=== PATIENT | male | born 1960 | race Caucasian/White ===

== ENCOUNTER 2020-02-09 13:28 | Emergency (ER) | payer MEDICARE, SELFPAY ==
--- NOTE | ~2020-02-09 | XR_ITS ---
EXAMINATION: XR foot RT min 3V EXAM DATE: 02/09/2020 14:01 INDICATION: Right 1st toe abrasion. Clinical concern for osteomyelitis. TECHNIQUE: Right foot dorsoplantar, lateral and oblique projections obtained and reviewed. There is no prior study for comparison. FINDINGS: Right metatarsal bones unremarkable. There are no bony erosions identified. There are n o acute fractures or dislocations identified. There is no subcutaneous gas. The soft tissue is unre markable. There are no radiopaque foreign bodies. IMPRESSION: No acute osseous findings. Reviewed, dictated and finalized at location A. IMPRESSION: No acute osseous findings.
[2020-02-09 13:36] VITALS: BP 121/65; PULSE 92; RESP 20; TEMP 37.1; O2SAT 99
--- NOTE | 2020-02-09 13:41 | ED.GENADULT ---
HPI - General Adult General Chief complaint: Extremity Problem,Nontraumatic Stated complaint: right ankle/heel swollen/pain Time Seen by Provider: 02/09/20 13:42 Source: patient Mode of arrival: ambulatory Limitations: no limitations History of Present Illness HPI narrative: 59-year-old male patient [facility] with complaints of right foot pain that started about 2 to 3 days ago. Patient denies any injury to the foot or ankle. Patient states he does have history of diabetes as well as neuropathy and is on insulin. Patient states he does have numbness and tingling to both feet and typically is not able to feel anything. Patient states he does wear sandals around a lot. Patient states that he is noticed some swelling to his right heel and does have pain when walking on it. Denies any fevers. Related Data Home Medications Medication Instructions Recorded Confirmed atorvastatin 40 mg PO DAILY 02/09/20 02/09/20 citalopram 40 mg PO DAILY 02/09/20 02/09/20 cyclobenzaprine 10 mg PO DAILY 02/09/20 02/09/20 donepezil 10 mg PO DAILY 02/09/20 02/09/20 famotidine 20 mg PO DAILY 02/09/20 02/09/20 glimepiride 4 mg PO DAILY 02/09/20 02/09/20 hydromorphone 2 mg PO DIRECTED 02/09/20 02/09/20 lisinopril 10 mg PO DAILY 02/09/20 02/09/20 meclizine mg 02/09/20 pioglitazone mg 02/09/20 ropinirole mg 02/09/20 Allergies Allergy/AdvReac Type Severity Reaction Status Date / Time Penicillins Allergy Unknown Rash Verified 02/09/20 13:48 Review of Systems Review of Systems: Narrative: CONSTITUTIONAL: Denies fever, chills, or sweats. EYES: Denies visual changes, redness, or discharge. ENT: Denies rhinorrhea, congestion, sore throat, or otalgia. CARDIOVASCULAR: Denies chest pain, palpitations, or edema. RESPIRATORY: Denies cough or dyspnea. GASTROINTESTINAL: Denies abdominal pain, nausea, vomiting, or diarrhea. GENITOURINARY: Denies dysuria or hematuria. SKIN: Denies rash or itching. MUSCULOSKELETAL: Denies back pain, joint pain, or myalgia. Positive right foot pain x2 to 3 days NEUROLOGIC: Denies headache, numbness, or weakness. PSYCHIATRIC: Denies anxiety or depression. [facility] Past Medical History Medical History (Updated 02/09/20 @ 14:19 by AYDE Briones) Back pain Ruptured disc in neck and 2 in the lower back Diabetes GERD (gastroesophageal reflux disease) Hypercholesterolemia Hypertension Kidney stones Pneumonia Renal cancer Renal disease Left nephrectomy 2012 Umbilical abnormality Umbilical/inguinal hernia Surgical History Surgical History (Updated 02/09/20 @ 13:51 by AYDE Briones) History of orthopedic surgery Rotator cuff Comments At the time of my signature I agree with nursing past medical history, surgical, social, and family history. There is no relevant family history pertinent to the presenting complaint. Exam Narrative: Exam Narrative: GENERAL: Well-appearing, well-nourished, and in no acute distress. HEAD: Normocephalic, atraumatic. EYES: PERRLA and EOMI. ENT: Nares clear, no rhinorrhea or epistaxis. Mucous membranes moist. NECK: Supple. No lymphadenopathy CHEST: Clear to auscultation. No respiratory distress. HEART: Regular rate and rhythm. No murmur heard. Normal peripheral pulses. ABDOMEN: Soft, nontender, nondistended, normal active bowel sounds. EXTREMITIES: Patient able to bear weight and ambulate but has increased pain to the right heel. No surface trauma, ecchymosis, erythema. Patient does have a small scabbed over superficial abrasion noted to the top of the great toe on the right foot. Measures approximately 0.5 cm. Patient does have discoloration to bilateral feet does appear somewhat purple. Patient does have decreased sensation to bilateral feet. Patient does have a delayed cap refill to bilateral feet. The R foot is without obvious asymmetry or deformity when compared to the L foot. No bony step-off, nontender to palpation over the toes, midfoot, patient
== END 2020-02-09 14:23 | disposition home or self-care (01) ==
PROVIDERS: Emergency Provider Nurse Practitioner Family; PCP Family Medicine
DX: L03.115 Cellulitis of right lower limb (principal); E11.42 Type 2 diabetes mellitus with diabetic polyneuropathy; I10 Essential (primary) hypertension; Z85.528 Personal history of other malignant neoplasm of kidney; Z79.4 Long term (current) use of insulin; Z90.5 Acquired absence of kidney
CPT/HCPCS: 73630; 99203; G0463

== ENCOUNTER 2022-10-27 12:37 | Emergency (ER) | payer MEDICARE, SELFPAY ==
[2022-10-27 12:43] VITALS: BP 131/80; PULSE 89; RESP 20; TEMP 36.6; O2SAT 98
--- NOTE | 2022-10-27 12:53 | ED.EAR ---
HPI - Ear Problem General Chief complaint: Ear Stated complaint: Wax in ears Source: patient and RN notes reviewed History of Present Illness HPI Narrative: 52-year-old male presents to urgent care with complaints of clogged ears bilaterally. Patient states he was being seen to have his hearing aids fitted today and the doctor noted his ears were clogged with wax. Patient states that the DrConner attempted to remove the wax with a ?probe of some sort? but was unsuccessful. Patient denies any ear pain. and has no other complaints. Related Data Home Medications Medication Instructions Recorded Confirmed atorvastatin 40 mg tablet 40 mg PO DAILY 02/09/20 02/09/20 citalopram 40 mg tablet 40 mg PO DAILY 02/09/20 02/09/20 cyclobenzaprine 10 mg tablet 10 mg PO DAILY 02/09/20 02/09/20 donepezil 10 mg tablet 10 mg PO DAILY 02/09/20 02/09/20 famotidine 20 mg tablet 20 mg PO DAILY 02/09/20 02/09/20 glimepiride 4 mg tablet 4 mg PO DAILY 02/09/20 02/09/20 hydromorphone 2 mg tablet 2 mg PO DIRECTED 02/09/20 02/09/20 lisinopril 10 mg tablet 10 mg PO DAILY 02/09/20 02/09/20 meclizine 12.5 mg tablet mg 02/09/20 pioglitazone 45 mg tablet mg 02/09/20 ropinirole 2 mg tablet mg 02/09/20 Allergies Allergy/AdvReac Type Severity Reaction Status Date / Time Penicillins Allergy Unknown Rash Verified 02/09/20 13:48 Review of Systems Review of Systems: CONSTITUTIONAL: Denies fever, chills, or sweats. EYES: Denies visual changes, redness, or discharge. ENT: Bilateral clogged ears. Denies pain CARDIOVASCULAR: Denies chest pain, palpitations, or edema. RESPIRATORY: Denies cough or dyspnea. GASTROINTESTINAL: Denies abdominal pain, nausea, vomiting, or diarrhea. GENITOURINARY: Denies dysuria or hematuria. SKIN: Denies rash or itching. MUSCULOSKELETAL: Denies back pain, joint pain, or myalgia. NEUROLOGIC: Denies headache, numbness, or weakness. [facility] Past Medical History Medical History (Updated 10/27/22 @ 12:58 by Jasmyn Walter, [employer]) Back pain Ruptured disc in neck and 2 in the lower back Diabetes GERD (gastroesophageal reflux disease) Hypercholesterolemia Hypertension Kidney stones Pneumonia Renal cancer Renal disease Left nephrectomy 2012 Umbilical abnormality Umbilical/inguinal hernia Surgical History Surgical History (Updated 02/09/20 @ 13:51 by AYDE Briones) History of orthopedic surgery Rotator cuff Comments At the time of my signature, I reviewed and agree with the nursing past medical, surgical, social, and family history. There is no relevant family history pertinent to the patient complaint. Exam Narrative: GENERAL: This is a well-nourished, well-developed patient, in no apparent distress. HEAD: normocephalic, atraumatic. EYES: Sclera clear/white. Vision is grossly intact. EARS: External ears normal, bilateral cerumen impaction. NOSE: External nose normal with no obvious nasal discharge, nares without redness, no rhinorrhea. THROAT: Mucous membranes moist, posterior pharynx clear. NECK: Neck supple, non-tender without lymphadenopathy, masses or thyromegaly. CARDIOVASCULAR: Regular rate RESPIRATORY: No respiratory distress SKIN: warm, intact with no suspicious lesions or rash, good texture and turgor. NEURO: awake, alert, and oriented to person, place and time. There were no obvious focal neurologic abnormalities. Course Course Level of Care: Express Care Visit Vital Signs Vital signs: Vital Signs Temperature 97.8 F 10/27/22 12:43 Pulse Rate 89 10/27/22 12:43 Respiratory Rate 20 10/27/22 12:43 Blood Pressure 131/80 10/27/22 12:43 Pulse Oximetry 98 10/27/22 12:43 Oxygen Delivery Room Air 10/27/22 12:43 Temperature 97.8 F 10/27/22 12:43 Pulse Rate 89 10/27/22 12:43 Respiratory Rate 20 10/27/22 12:43 Blood Pressure 131/80 10/27/22 12:43 Pulse Oximetry 98 10/27/22 12:43 Oxygen Delivery Room Air 10/27/22 12:43 Reviewed Medical Decision Angela
== END 2022-10-27 13:31 | disposition home or self-care (01) ==
PROVIDERS: Emergency Provider Nurse Practitioner Family; PCP Family Medicine
DX: H61.23 Impacted cerumen, bilateral (principal); E11.9 Type 2 diabetes mellitus without complications; Z79.84 Long term (current) use of oral hypoglycemic drugs; K21.9 Gastro-esophageal reflux disease without esophagitis; E78.00 Pure hypercholesterolemia, unspecified; I10 Essential (primary) hypertension; Z85.528 Personal history of other malignant neoplasm of kidney; Z90.5 Acquired absence of kidney
CPT/HCPCS: 69209; 99213; G0463